=== PATIENT | male | born 1945 | race Caucasian/White ===

== ENCOUNTER → 2017-02-25 | Outpatient (CLI) | payer OTHER ==
[~2017-02-25] VITALS: Ht 180.3 cm; Wt 74.8 kg
[~2017-02-25] MED LIST: ADVAIR HFA120 INHALA IH; AMLODIPINE-BEN1 EAC5 PO; BYSTOLIC5 MG PO; PANTOPRAZOLE SO40 MG PO; PROBIOTIC1 EAC1 PO; PROTONIX20 MG PO; SPIRIVA1 INHALATI IH
== END | disposition home or self-care (01) ==
LOC: AMB 11:15
DX: Z12.11 Encounter for screening for malignant neoplasm of colon (principal); D12.2 Benign neoplasm of ascending colon; D12.3 Benign neoplasm of transverse colon; K21.9 Gastro-esophageal reflux disease without esophagitis; I10 Essential (primary) hypertension; J44.9 Chronic obstructive pulmonary disease, unspecified; Z87.891 Personal history of nicotine dependence
CPT/HCPCS: 88305; 93005

== ENCOUNTER 2017-12-07 11:19 | Day surgery (SDC) | payer OTHER ==
[~2017-12-07] VITALS: Ht 180.3 cm; Wt 77.0 kg
[~2017-12-07 11:19] MED LIST changes: +ASPIRIN81 M2 PO; +FLONASE16 G1 BOTH NARES; +MULTIVITAMIN1 EAC2 PO; +VENTOLIN HFA18 GM IH
== END 2017-12-07 16:45 | disposition home or self-care (01) ==
LOC: CATH 11:19
DX: I25.10 Atherosclerotic heart disease of native coronary artery without angina pectoris (principal); I10 Essential (primary) hypertension; Z79.82 Long term (current) use of aspirin
CPT/HCPCS: C1769; C1887; J1644; J2250; J3010